=== PATIENT | female | born 1980 | race Hispanic/Latino ===

== ENCOUNTER 2024-10-17 04:18 | Emergency (ER) | payer MEDICAID ==
[~2024-10-17] VITALS: Ht 162.6 cm; Wt 65.0 kg
[~2024-10-17 04:18] MED LIST: BENZONATATE100 MG PO; PREDNISONE20 MG PO; ZITHROMAX250 MG PO
[2024-10-17] MEDS ORDERED: BACTRIM 400-801 EACH PO (04:49)
[2024-10-17] MEDS ORDERED: TRIMETHOPRIM/SULFAMETHOXAZOLE 1 EA HOME.PACK PO ONE (05:00)
[2024-10-17] MEDS ORDERED: IBUPROFEN 600 MG TAB PO ONE (05:00)
[2024-10-17] MEDS ORDERED: ACETAMINOPHEN 500 MG TAB PO ONE (05:00)
[2024-10-17 05:06] VITALS: BP 122/91
== END 2024-10-17 05:05 | disposition home or self-care (01) ==
LOC: ED 04:18
DX: L02.811 Cutaneous abscess of head [any part, except face] (principal)
CPT/HCPCS: 10060; 87070; 87077; 87186; 87205; 99282-25; A9270

== ENCOUNTER 2024-10-22 13:11 | Emergency (ER) | payer MEDICAID ==
[~2024-10-22] VITALS: Ht 162.6 cm; Wt 61.1 kg
[~2024-10-22 13:11] MED LIST changes: +BACTRIM 400-801 EACH PO
--- OUTSIDE RECORDS SUMMARY | 2024-10-22 13:17 | XMS ---
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 Hilario has no Care Guidelines for this patient. Enrrique VISIT COUNT (12 [address] [facility] [place] [facility]. TOTAL 2 NOTE: Visits indicate total known visits. ED/C VISIT TRACKING (12 MO.) 10/22/2024 13:11 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
[2024-10-22] MEDS ORDERED: LIDOCAINE/RACEPINEP/TETRACAINE 3 ML SYR TOP ONE (15:00)
[2024-10-22] MEDS ORDERED: LIDOCAINE 1% W/ EPI 1:100,000 20 ML MDV SUB-Q ONE (15:00)
[2024-10-22] MEDS ORDERED: IBUPROFEN 600 MG TAB PO ONE (15:45)
[2024-10-22 16:01] VITALS: BP 115/94
== END 2024-10-22 16:01 | disposition home or self-care (01) ==
LOC: ED 13:11
DX: L02.811 Cutaneous abscess of head [any part, except face] (principal)
CPT/HCPCS: 99282

== ENCOUNTER 2024-12-16 22:24 | Emergency (ER) | payer MEDICAID ==
[~2024-12-16] VITALS: Ht 165.1 cm; Wt 59.0 kg
[2024-12-16] MEDS ORDERED: ondansetron HCL 4 MG/2 ML VIAL IV ONE (22:45)
[2024-12-16 22:51] LABS: BASOPHILS 0.2 % (0.1-1.2); EOSINOPHILS 0.8 % (0.7-5.8); HEMOGLOBIN 13.9 g/dL (11.2-15.7); LYMPHOCYTES 19.3 % (19.3-51.7); MCH 25.2 PG (25.6-32.2); MCHC 31.6 g/dL (32.2-35.5); MCV 79.9 fL (79.4-94.8); MONOCYTES 8.1 % (4.7-12.5); NEUTROPHILS 71.3 % (34.0-71.1); PLATELET COUNT 345 K/uL (182-369); RBC 5.51 M/uL (3.93-5.22)
[2024-12-16 23:09] LABS: ALBUMIN 3.9 g/dL (3.4-5.0); ALBUMIN/GLOBULIN RATIO 0.89 (1.1-2.4); ANION GAP 14.1 (7-21); BILIRUBIN, TOTAL 0.3 mg/dL (0.2-1.0); BUN/CREATININE RATIO 18.08 (6.0-28.6); CALCIUM 9.5 mg/dL (8.5-10.1); CREATININE, SERUM 0.94 mg/dL (0.55-1.02); MAGNESIUM 2.1 mg/dL (1.8-2.4); POTASSIUM 4.1 mmol/L (3.5-5.1); PROTEIN, TOTAL 8.3 g/dL (6.4-8.2)
[2024-12-16] MEDS ORDERED: KETOROLAC TROMETHAMINE 30 MG/ML VIAL IV ONE (23:15)
[2024-12-16] MEDS ORDERED: FAMOTIDINE 20 MG/ 2 ML VIAL IV ONE (23:15)
[2024-12-16] MEDS ORDERED: LACTATED RINGER'S 1,000 ML IV ONE (23:15)
[2024-12-16] MEDS ORDERED: HYDROmorphone HCL 1 MG/ML SYR IV PRN (23:45)
[2024-12-17 00:27] LABS: BILIRUBIN, URINE NEGATIVE (negative); BLOOD/HGB, URINE NEGATIVE (Negative); KETONE, URINE NEGATIVE (Negative); LEUK ESTERASE, URINE NEGATIVE (negative); NITRITE, URINE NEGATIVE (negative)
[2024-12-17 00:39] LABS: EPITHELIAL CELLS, URINE SQUAMOUS 3+ /lpf (0-1+)
[2024-12-17 00:40] LABS: BACTERIA, URINE RARE /hpf (negative); CASTS, URINE NONE SEEN \\lpf; COLLECTION TYPE, URINE CLEAN CATCH; CRYSTALS, URINE NONE SEEN (0-1+); RED BLOOD CELLS, URINE 0-1 /hpf (0-5); REFLEX CULTURE, URINE No (No)
[2024-12-17 00:42] LABS: AMPHETAMINES, URINE NEGATIVE (NEGATIVE); BARBITURATES, URINE NEGATIVE (NEGATIVE); BENZODIAZEPINE, URINE NEGATIVE (NEGATIVE); BUPRENORPHINE, URINE POSITIVE (NEGATIVE); CANNABINOID, URINE POSITIVE (NEGATIVE); COCAINE, URINE NEGATIVE (NEGATIVE); ECSTASY, URINE NEGATIVE (NEGATIVE); FENTANYL, URINE NEGATIVE (NEGATIVE); METHADONE, URINE NEGATIVE (NEGATIVE); OPIATES, URINE NEGATIVE (NEGATIVE); OXYCODONE, URINE NEGATIVE (NEGATIVE); PHENCYCLIDINE, URINE NEGATIVE (NEGATIVE)
[2024-12-17] MEDS ORDERED: ONDANSETRON 4 MG HOME.PACK SL ONE (02:15)
[2024-12-17 02:24] VITALS: BP 106/74
== END 2024-12-17 02:23 | disposition home or self-care (01) ==
LOC: ED 22:24
PROVIDERS: Internal Medicine
DX: A05.9 Bacterial foodborne intoxication, unspecified (principal); N83.8 Other noninflammatory disorders of ovary, fallopian tube and broad ligament; Z88.5 Allergy status to narcotic agent
CPT/HCPCS: 36415; 74177; 76830; 76856; 80053; 80307; 81001; 83690; 83735; 84703; 85025; 96361; 96375; 99284-25; A9270; J1171; J2405; J7121; Q9967

== ENCOUNTER 2025-05-31 00:06 | Emergency (ER) | payer OTHER ==
[~2025-05-31] VITALS: Ht 165.1 cm; Wt 60.0 kg
[2025-05-31] MEDS ORDERED: IBU600 MG PO (00:21)
[2025-05-31] MEDS ORDERED: BACTRIM DS TAB1 EACH PO (01:43)
[2025-05-31] MEDS ORDERED: TRIMETHOPRIM/SULFAMETHOXAZOLE 1 EA HOME.PACK PO ONE (01:45)
[2025-05-31 02:05] VITALS: BP 94/50
== END 2025-05-31 02:10 | disposition home or self-care (01) ==
LOC: ED 00:06
DX: T63.301A Toxic effect of unspecified spider venom, accidental (unintentional), initial encounter (principal); L03.116 Cellulitis of left lower limb; X58.XXXA Exposure to other specified factors, initial encounter; Z88.8 Allergy status to other drugs, medicaments and biological substances
CPT/HCPCS: 99282; A9270